=== PATIENT | female | born 1960 | race Caucasian/White ===

== ENCOUNTER 2019-04-11 19:08 | Inpatient (IN) | payer BC ==
[~2019-04-11] VITALS: Ht 165.1 cm; Wt 60.8 kg
--- NOTE | 2019-04-11 19:28 | NUR ---
SENT FROM URGENT CARE FOR PNEUMONIA. PT C/O BODY ACHES, CHILLS, FEVER, AND COUGH. +FEVER. DENIES SOB, DIZZINESS, WEAKNESS, N/V. APPEARS LETHARGIC. AOX4, RR EVEN AND UNLABORED ON RA. NO ACUTE DISTRESS NOTED. FAMILY AT BEDSIDE. ON MONITOR AND READY FOR EVAL.
[2019-04-11] MEDS ORDERED: AZITHROMYCIN 500 MG in IV D5W 250 ML IV ONE ×2 (19:30→20:00)
[2019-04-11] MEDS ORDERED: CEFTRIAXONE 1GM BAG (ER ONLY) 50 ML IV ONE (19:36)
--- NOTE | 2019-04-11 19:40 | NUR ---
IV LINE ESTABLISHED. IVF INFUSING. PT MARIE WELL
--- NOTE | 2019-04-11 19:45 | NUR ---
PT MOVED TO BED 8
[2019-04-11 19:48] LABS: BASOPHILS % (AUTO) 0.2 % (0.0-2.0); EOSINOPHILS % (AUTO) 1.1 % (0.0-6.0); HEMATOCRIT 35 % (33-45); HEMOGLOBIN 11.9 g/dL (11.5-14.8); LYMPHOCYTES # (AUTO) 0.7 /CMM (0.8-4.8); LYMPHOCYTES % (AUTO) 4.8 % (20.0-44.0); MEAN CORPUSCULAR HGB CONC 34 g/dl (31.0-36.0); MEAN CORPUSCULAR VOLUME 95 fL (82-100); MONOCYTES # (AUTO) 0.9 /CMM (0.1-1.30); MONOCYTES % (AUTO) 5.8 % (2.0-12.0); NEUTROPHILS # (AUTO) 13.3 /CMM (1.8-8.9); NEUTROPHILS % (AUTO) 88.1 % (43.0-81.0); PLATELET COUNT (AUTO) 230 /CMM (150-450); RED BLOOD CELL COUNT(AUTO) 3.69 MIL/uL (4.0-5.2); WHITE BLOOD COUNT (AUTO) 15.1 K/uL (4.3-11.0)
[2019-04-11] MEDS: IV NS 0.9% 500 ML BAG IV ONE ×2 (19:54→19:56)
[2019-04-11] MEDS: CEFTRIAXONE 1GM BAG (ER ONLY) 50 ML IV ONE ×2 (19:55→19:57)
[2019-04-11] MEDS ORDERED: IBUPROFEN 600 MG TABLET PO ONE ×2 (20:00→20:29)
[2019-04-11] MEDS ORDERED: ALBUTEROL FS 2.5 MG/3 ML VIAL.NEB NEB ONE (20:00)
[2019-04-11] MEDS ORDERED: IV NS 0.9% 1,000 ML BAG IV ONE (20:00)
[2019-04-11] MEDS ORDERED: IPRATROPIUM NEB FS 0.5 MG/2.5 ML AMPUL.NEB NEB ONE (20:00)
[2019-04-11 20:01] LABS: CALCIUM, SERUM 9.2 mg/dL (8.5-10.1); CARBON DIOXIDE 21 mmol/L (21-32); CHLORIDE 89 mmol/L (98-107); GLUCOSE 91 mg/dL (74-106); POTASSIUM 3.2 mmol/L (3.5-5.1); SODIUM SERUM 126 mmol/L (136-145); UREA NITROGEN, BLOOD 37 mg/dL (7-18)
[2019-04-11 20:07] LABS: ALANINE AMINOTRANSFERASE 58 U/L (12-78); ALBUMIN 2.8 g/dL (3.4-5.0); ALKALINE PHOSPHATASE 55 U/L (46-116); ASPARTATE AMINOTRANSFERASE 118 U/L (15-37); BILIRUBIN,DIRECT 0.2 mg/dL (0.0-0.2); BILIRUBIN,TOTAL 0.4 mg/dL (0.2-1.0); LIPASE 57 U/L (73-393); TOTAL PROTEIN, SERUM 7.2 g/dL (6.4-8.2)
[2019-04-11] MEDS ORDERED: ALBUTEROL FS 2.5 MG/3 ML VIAL.NEB ONE (20:31)
[2019-04-11] MEDS ORDERED: IPRATROPIUM NEB FS 0.5 MG/2.5 ML AMPUL.NEB ONE (20:31)
--- NOTE | 2019-04-11 20:31 | NUR ---
FLU SWAB AND MRSA SWAB DONE AND SENT TO LAB
--- NOTE | 2019-04-11 20:52 | NUR ---
Epic paged for panel call
--- NOTE | 2019-04-11 20:59 | NUR ---
FLU SWAB SENT TO STAT LAB
[2019-04-11] MEDS ORDERED: IV NS 0.9% 1,000 ML IV PRN (21:07)
[2019-04-11] MEDS ORDERED: ZOLPIDEM TARTRATE 5 MG TABLET PO PRN (21:30)
[2019-04-11] MEDS ORDERED: ALBUTEROL HALF STRENGTH 1.25 MG/3 ML VIAL.NEB NEB PRN (21:30)
[2019-04-11] MEDS ORDERED: MAG HYDROX/AL HYDROX/SIMETH 30 ML UDC PO PRN (21:30)
[2019-04-11] MEDS ORDERED: MAGNESIUM HYDROXIDE 30 ML UDC PO PRN (21:30)
[2019-04-11] MEDS ORDERED: IPRATROPIUM NEB FS 0.5 MG/2.5 ML AMPUL.NEB NEB PRN (21:30)
[2019-04-11] MEDS ORDERED: HYDROCODONE/APAP 5/325MG 1 EACH TABLET PO PRN (21:30)
[2019-04-11] MEDS ORDERED: MORPHINE SULFATE INJ 2 MG/ML DISP.SYRIN IV PRN (21:30)
[2019-04-11] MEDS ORDERED: ONDANSETRON HCL/PF 4 MG/2 ML VIAL IVP PRN (21:30)
[2019-04-11] MEDS ORDERED: IBUPROFEN 600 MG TABLET PO PRN (21:30)
--- NOTE | 2019-04-11 21:37 | NUR ---
REPORT GIVEN TO NOMI YOUNG FOR 317-1 TELE.
--- NOTE | 2019-04-11 21:58 | NUR ---
PT TRANSFERED PER ACLS PROTOCOL
[2019-04-11] MEDS: ACETAMINOPHEN 325 MG TABLET PO PRN (22:40)
[2019-04-11] MEDS: NICOTINE PATCH (14MG) 14 MG PATCH.TD24 TD SCH (22:40)
[2019-04-11 22:54] VITALS: BP 127/77
[2019-04-11] MEDS ORDERED: LISI10TA5 PO (23:10)
[2019-04-11] MEDS ORDERED: TRAZ-257 PO (23:10)
[2019-04-12] VITALS: BP 125/70
[2019-04-12 04:00] VITALS: BP 120/70
--- NOTE | 2019-04-12 06:10 | NUR ---
MS RN NOTES AWAKE & RESPONSIVE. NOT IN ANY DISTRESS. NO SOB NOTED. DENIES ANY PAIN OR DISCOMFORT AT THIS TIME. WITH IVF INFUSING WELL. MONITORED ACCORDINGLY. CALL LIGHT WITHIN REACH. BED IN LOWEST POSITION. SR UP X 2 FOR SAFETY. WILL ENDORSE TO NEXT SHIFT.
[2019-04-12 07:50] LABS: BASOPHILS % (AUTO) 0.1 % (0.0-2.0); EOSINOPHILS % (AUTO) 1.6 % (0.0-6.0); HEMATOCRIT 33 % (33-45); HEMOGLOBIN 11.1 g/dL (11.5-14.8); LYMPHOCYTES # (AUTO) 0.8 /CMM (0.8-4.8); LYMPHOCYTES % (AUTO) 5.3 % (20.0-44.0); MEAN CORPUSCULAR HGB CONC 33 g/dl (31.0-36.0); MEAN CORPUSCULAR VOLUME 96 fL (82-100); MONOCYTES # (AUTO) 1.2 /CMM (0.1-1.30); MONOCYTES % (AUTO) 8.1 % (2.0-12.0); NEUTROPHILS # (AUTO) 12.9 /CMM (1.8-8.9); NEUTROPHILS % (AUTO) 84.9 % (43.0-81.0); PLATELET COUNT (AUTO) 189 /CMM (150-450); RED BLOOD CELL COUNT(AUTO) 3.44 MIL/uL (4.0-5.2); WHITE BLOOD COUNT (AUTO) 15.2 K/uL (4.3-11.0)
[2019-04-12 08:00] VITALS: BP 148/85
[2019-04-12 08:19] LABS: ALBUMIN 2.1 g/dL (3.4-5.0); BILIRUBIN,TOTAL 0.3 mg/dL (0.2-1.0); CALCIUM, SERUM 8.5 mg/dL (8.5-10.1); CREATININE 1.8 mg/dL (0.6-1.3); MAGNESIUM 2.1 mg/dL (1.8-2.4); PHOSPHORUS 3.7 mg/dL (2.5-4.9); POTASSIUM 3.1 mmol/L (3.5-5.1)
[2019-04-12 08:24] LABS: THYROID STIMULATING HORMONE 0.818 uIU/mL (0.358-3.74)
[2019-04-12 08:25] VITALS: BP 148/85
[2019-04-12] MEDS: ACETAMINOPHEN 325 MG TABLET PO PRN ×2 (08:45→17:56)
[2019-04-12] MEDS: PANTOPRAZOLE 40 MG TABLET.DR PO SCH (08:45)
[2019-04-12] MEDS: NICOTINE PATCH (14MG) 14 MG PATCH.TD24 TD SCH (08:45)
[2019-04-12] MEDS: IV D5/ 0.9% NACL 1,000 ML IV PRN ×2 (10:45→20:50)
[2019-04-12] MEDS: POTASSIUM CHLORIDE 20 MEQ TAB.PRT.SR PO SCH ×2 (10:47→12:14)
[2019-04-12 13:10] LABS: CREATININE, URINE 18.1 MG/DL (30.0-125.0); URINE TOTAL PROTEIN 35.2 mg/dL (0-11.9)
[2019-04-12 13:44] LABS: APPEARANCE,URINE CLEAR (CLEAR); BILIRUBIN,URINE NEGATIVE (NEGATIVE); BLOOD, URINE MODERATE Ery/uL (NEGATIVE); KETONES,URINE NEGATIVE (NEGATIVE); LEUKOCYTE ESTERASE ,URINE NEGATIVE (NEGATIVE); NITRITE, URINE NEGATIVE (NEGATIVE); PROTEIN,URINE NEGATIVE (NEGATIVE); UGLUCOSE NEGATIVE (NEGATIVE); UROBILINOGEN,URINE 0.2 EU/dL (0.2)
[2019-04-12 13:50] LABS: COLOR,URINE STRAW (YELLOW)
--- NOTE | 2019-04-12 14:58 | NUR ---
Per doctor Redmond : Pt's home meds to be continue
[2019-04-12 15:25] LABS: EOSINOPHIL,URINE None Seen
[2019-04-12 15:26] LABS: BACTERIA,URINE 2+ /HPF (None Seen); SQUAMOUS EPITHELIAL CELL,UR Few /HPF (None Seen); WBC,URINE NONE SEEN /HPF (0-3)
[2019-04-12 16:00] VITALS: BP 143/85
[2019-04-12] MEDS: LISINOPRIL (10MG) 10 MG TABLET PO SCH (17:56)
--- NOTE | 2019-04-12 19:17 | NUR ---
PATIENT AWAKE A/O X4. NOT IN ANY DISTRESS. TYLENOL FOR LOW GRADE FEVER ADMINISTRATED. IVF INFUSING WELL. MONITORED ACCORDINGLY. CALL LIGHT WITHIN REACH, AT BED SIDE. BED IN LOWEST POSITION. SIDE RAILS UP X 2 FOR SAFETY. WILL ENDORSE TO NEXT SHIFT.
--- NOTE | 2019-04-12 19:20 | NUR ---
RN NOTES: RECEIVED AWAKE IN BED, ON ISOLATION, DROPLET AND TB/NEGATIVE PRESSURE ISOLATION, PPRESENT AT BED SIDE, PPE PROTOCOL FOLLOWED,A/0X 4, VERY PLEASANT PERSONALITY, WHILE ENDORSING SHE WAS REQUESTING FOR HHN, OUTGOING RN ALREADY NOTIFIED RT.FALL,SAFETY AND ASPIRATION PRECAUTION OBSERVED, NOT ON RESPIRATORY DISTRESS, SLIGHT SOB NOTED WANTS HER HHN, TO COLLECT SPUTUM FOR [employer].KEPT ON CLOSE WATCH.
[2019-04-12 20:00] VITALS: BP 118/69
--- NOTE | 2019-04-12 20:20 | NUR ---
RN NOTES: -AFTER ENDORSEMENT CALLED RT AND F/U FOR HHN. -RT CAME AND HHN RENDERED. FOR SPUTUM SPECIMEN COLLECTION AFTER NEBULIZATION, PATIENT WAS INSTRUCTED. SPECIMEN BOTTLE AVAILABLE AT BED SIDE.
--- NOTE | 2019-04-12 20:30 | NUR ---
RN NOTES: -AFTER NEBULIZATION SHE AGREE TO GIVE IV/ATB. -SHE WAS SEEN BY JUDEEN/SUPERVISOR [employer]ACING AT AROUND 2029, THEN SHE CALLED TO DO RESPIRATORY VIRUS PANEL. NOTED AND CARRIED OUT. -F/U WITH LAB AND SPOKE WITH STEVIE, NEED TO COLLECT SPECIMEN IN GREEN BOTTLE, NASAL SWAB ON BOTH RIGHT AND LEFT NARES. -2107-SPECIMEN BOTTLE DELIVERED , EXPLAINED TO PATIENT, SPECIMEN COLLECTED; READY FOR PICK-UP. COLLECTED BY LAB AT AROUND 2114.
[2019-04-12] MEDS: CEFTRIAXONE 1 G in IV D5W 50 ML IV SCH (20:34)
[2019-04-12] MEDS: AZITHROMYCIN 500 MG in IV D5W 250 ML IV SCH (20:38)
[2019-04-12] MEDS: TRAZODONE 50 MG TABLET PO SCH (21:32)
--- NOTE | 2019-04-12 22:00 | NUR ---
RN NOTES: IVF FINISHED, NEW BAG OF D5NS AT 75 ML/HR STARTED, IV SITE RAC PATENT, CONTINUE INFUSION USING IV PUMP.
--- NOTE | 2019-04-13 03:30 | NUR ---
RN NOTES: WHILE DOING MORNING CARE, CHANGING HER BEADINGS AND DRESS, MORNING CARE DONE, SHE CLAIMED SHE VOMITED 2X ALL SALIVA ONLY COMING OUT AND SHE FELT NAUSEATED, REQUESTING IF SHE GOOD GET SOME MEDICATION, SHE FEELS COLD, WARM BLANKET PROVIDED, SHE IS AFEBRILE, ZOFRAN PRN GIVEN. KEPT ON CLOSE WATCH.CALL LIGHT WITHIN EASY REACH.
--- NOTE | 2019-04-13 06:43 | NUR ---
RN NOTES: ABLE TO SLEEP AND REST, NO MORE VOMITING IN THE MORNING, SHE WAS NOT ABLE TO COLLECT SPUTUM SPECIMEN SHE VERBALIZED NO PHLEGM COMING OUT AND I FEEL THIRSTY MOST OF THE TIME, WATER PITCHER AT BED SIDE,FALL,SAFETY AND ASPIRATION OBSERVED, CONTINUE TO KEEP ON CLOSE WATCH, NEEDS ATTENDED, SHE GO BACK TO SLEEP.
[2019-04-13] MEDS: PANTOPRAZOLE 40 MG TABLET.DR PO SCH (07:30)
[2019-04-13 07:50] LABS: BASOPHILS % (AUTO) 0.2 % (0.0-2.0); HEMATOCRIT 32 % (33-45); HEMOGLOBIN 10.8 g/dL (11.5-14.8); LYMPHOCYTES # (AUTO) 1.1 /CMM (0.8-4.8); LYMPHOCYTES % (AUTO) 8.7 % (20.0-44.0); MEAN CORPUSCULAR HGB CONC 34 g/dl (31.0-36.0); MEAN CORPUSCULAR VOLUME 95 fL (82-100); MONOCYTES # (AUTO) 1.2 /CMM (0.1-1.30); NEUTROPHILS # (AUTO) 9.8 /CMM (1.8-8.9); NEUTROPHILS % (AUTO) 81.1 % (43.0-81.0); PLATELET COUNT (AUTO) 232 /CMM (150-450); RED BLOOD CELL COUNT(AUTO) 3.35 MIL/uL (4.0-5.2); WHITE BLOOD COUNT (AUTO) 12.1 K/uL (4.3-11.0)
[2019-04-13 08:00] VITALS: BP 133/72
[2019-04-13 08:04] LABS: ALBUMIN 2.1 g/dL (3.4-5.0); BILIRUBIN,TOTAL 0.4 mg/dL (0.2-1.0); CALCIUM, SERUM 8.7 mg/dL (8.5-10.1); CREATININE 1.2 mg/dL (0.6-1.3); MAGNESIUM 1.8 mg/dL (1.8-2.4); PHOSPHORUS 1.7 mg/dL (2.5-4.9); POTASSIUM 2.9 mmol/L (3.5-5.1); TOTAL PROTEIN, SERUM 6.4 g/dL (6.4-8.2)
[2019-04-13] MEDS: NICOTINE PATCH (14MG) 14 MG PATCH.TD24 TD SCH (09:00)
[2019-04-13] MEDS: LISINOPRIL (10MG) 10 MG TABLET PO SCH (09:41)
[2019-04-13 10:13] LABS: BAND % (MANUAL) 3 % (0.0-5.0); LYMPHOCYTES % (MANUAL) 6 % (16-48); MONOCYTES % (MANUAL) 6 % (0-11.0); NEUTROPHILS % (MANUAL) 85 (42-76)
[2019-04-13] MEDS: POTASSIUM CHLORIDE 20 MEQ TAB.PRT.SR PO SCH ×3 (10:52→13:17)
[2019-04-13] MEDS: K PHOS NEUTRAL 250 MG TABLET PO SCH ×3 (13:23→21:08)
[2019-04-13 16:00] VITALS: BP 144/88
[2019-04-13] MEDS: ACETAMINOPHEN 325 MG TABLET PO PRN (16:19)
--- NOTE | 2019-04-13 18:36 | NUR ---
PATIENT AWAKE A/O X4. NOT IN ANY DISTRESS. TYLENOL FOR LOW GRADE FEVER ADMINISTRATED. IVF DISCONTINUED.REMAINS ON 2L VIA NASAL CANULA. CALL LIGHT WITHIN REACH, AT BED SIDE. BED IN LOWEST POSITION. SIDE RAILS UP X 2 FOR SAFETY. WILL ENDORSE TO NEXT SHIFT.
--- NOTE | 2019-04-13 19:54 | NUR ---
MS RN PATIENT IN BED AWAKE, A/O X 4, STABLE AND NOT IN DISTRESS. MAINTAINS ISOLATION. SAFETY MEASURES IN PLACE. WILL CONTINUE TO MONITOR.
[2019-04-13 20:00] VITALS: BP 123/70
[2019-04-13] MEDS: CEFTRIAXONE 1 G in IV D5W 50 ML IV SCH (20:26)
[2019-04-13 20:35] VITALS: BP 123/70
[2019-04-13] MEDS: AZITHROMYCIN 500 MG in IV D5W 250 ML IV SCH (20:58)
[2019-04-13] MEDS: TRAZODONE 50 MG TABLET PO SCH (21:08)
--- NOTE | 2019-04-14 06:42 | NUR ---
MS RN NO SIGNIFICANT CHANGES, SLEPT WELL, MAINTAINS ISOLATION. NEEDS ATTENDED AND ANTICIPATED, KEPT CLEAN, DRY AND COMFORTABLE AT ALL TIMES. SAFETY MEASURES AT ALL TIMES. WILL ENDORSE NEXT SHIFT POC.
--- NOTE | 2019-04-14 07:30 | NUR ---
RN MS NOTES PT IN BED, AWAKE, ALERT AND ORIENTED, NO COMPLAINT OF PAIN, NOT IN DISTRESS, NO COUGHING NOTED, CALL LIGHT WITHIN REACH, KEPT WARM AND COMFORTABLE IN BED, ISOLATION PRECAUTIONS OBSERVED.
[2019-04-14 08:00] VITALS: BP 136/85
[2019-04-14] MEDS ORDERED: POTASSIUM CHLORIDE 20 MEQ TAB.PRT.SR PO ONE (08:30)
[2019-04-14] MEDS: PANTOPRAZOLE 40 MG TABLET.DR PO SCH (08:37)
[2019-04-14] MEDS: LISINOPRIL (10MG) 10 MG TABLET PO SCH (08:38)
[2019-04-14] MEDS: NICOTINE PATCH (14MG) 14 MG PATCH.TD24 TD SCH (08:42)
[2019-04-14 09:06] LABS: CALCIUM, SERUM 8.6 mg/dL (8.5-10.1); CREATININE 0.9 mg/dL (0.6-1.3); POTASSIUM 3.2 mmol/L (3.5-5.1)
[2019-04-14] MEDS: ACETAMINOPHEN 325 MG TABLET PO PRN (11:50)
--- NOTE | 2019-04-14 13:00 | NUR ---
RN MS NOTES PT IN BED, AWAKE, ALERT AND ORIENTED, NO COMPLAINT AT THIS TIME, RESPIRATIONS NORMAL, DENIES PAIN, SEEN BY DR. MG, PLAN OF CARE DISCUSSED WITH PT, VERBALIZED UNDERSTANDING, ISOLATION PRECAUTIONS OBSERVED, NEEDS ATTENDED.
[2019-04-14 16:00] VITALS: BP 113/59
[2019-04-14] MEDS: CEFTRIAXONE 1 G in IV D5W 50 ML IV SCH (18:11)
--- NOTE | 2019-04-14 18:51 | NUR ---
RN MS NOTES PT IN BED, AWAKE, ALERT AND ORIENTED, NO COMPLAINT OF PAIN, BREATHING PATTERN NORMAL, CALL LIGHT WITHIN REACH, PM MEDS GIVEN ORDERED, PM CARE PROVIDED, ISOLATION PRECAUTIONS OBSERVED. ALL NEEDS ATTENDED.
--- NOTE | 2019-04-14 19:52 | NUR ---
MS/RN OPENING NOTES' RECEIVED PATIENT IN BED,ON ISOLATION FOR AIRBORNE. TO RULE OUT TB,ALERT, ORIENTED, ABLE TO VERBALIZE NEEDS, FAMILY INVOLVE.RECEIVED ENDORSEMENT FROM AM RN FOR TYE. WILL MONITOR. DENIES PAIN. BED LOCKED, BELONGINGS WITHIN REACH. WILL CONTINUE WITH CARE,RIGHT WRIST GAUGE 22 PATENT.
[2019-04-14 20:00] VITALS: BP 116/77
[2019-04-14] MEDS ORDERED: AZITHROMYCIN 250 MG TABLET PO SCH (20:00)
--- NOTE | 2019-04-14 20:30 | NUR ---
MS/RN NOTES PATIENT REPORTED ALLERGIC REACTION ON MEDICATION GIVEN EARLIER TODAY WIWTH OBSERVED RASHES IN THE BACK, MD WAS MADE AWARE WITH ORDER FOR BENADRYL IVP, AND TO CONSULT WITH ID, TO ORDER WOUND CONSULT AND TAKE PICTURE OF RASHES. WILL MONITOR.
[2019-04-14] MEDS: diphenhydrAMINE HCL 50 MG/ML VIAL IV PRN (20:56)
[2019-04-14] MEDS: TRAZODONE 50 MG TABLET PO SCH (22:04)
--- NOTE | 2019-04-14 22:45 | NUR ---
MS/RN NOTES PHOTO OF THE BACK WITH RASHES TAKEN.
--- NOTE | 2019-04-15 07:15 | NUR ---
MS RN OPENING NOTES RECEIVED PATIENT IN BED ASLEEP, AROUSABLE TO VERBAL AND TACTILE STIMULI. NO SOB. DENIES ANY C/O PAIN NOR DISCOMFORT AT THIS TIME. HOB ELEVATED. AMBULATORY WITH STEADY GAIT. RIGHT WRIST SL #22 INTACT AND PATENT. BED IN LOWEST POSITION, LOCKED. BED SIDERAILS UP X2. CALL LIGHT WITHIN REACH.
--- NOTE | 2019-04-15 07:30 | NUR ---
317-1 MS/RN CLOSING NOTED PATIENT ALERT, ORIENTED, X4, ABLE TO VERBALIZE NEEDS, FOLLOWED AIRBORME PROTOCOL, ATTENDED TO ALL NEEDS, KEPT COMFORTABLE, ABLE TO DO SELF CARE. MONITORED FOR ANY CHANGES BED LOCED, CALL LIGHTS WITHIN REACH. WILL ENDORSE TO AM RN FOR TYE.
[2019-04-15 07:55] VITALS: BP 128/71
[2019-04-15 08:06] LABS: CREATININE KINASE (CK),MB < 1.0 ng/mL (0.0-5.3)
[2019-04-15 08:17] LABS: BASOPHILS % (AUTO) 0.5 % (0.0-2.0); EOSINOPHILS % (AUTO) 1.3 % (0.0-6.0); HEMATOCRIT 30 % (33-45); HEMOGLOBIN 10.1 g/dL (11.5-14.8); LYMPHOCYTES # (AUTO) 1.8 /CMM (0.8-4.8); LYMPHOCYTES % (AUTO) 20.3 % (20.0-44.0); MEAN CORPUSCULAR HGB CONC 34 g/dl (31.0-36.0); MEAN CORPUSCULAR VOLUME 95 fL (82-100); MONOCYTES # (AUTO) 0.9 /CMM (0.1-1.30); MONOCYTES % (AUTO) 10.5 % (2.0-12.0); NEUTROPHILS % (AUTO) 67.4 % (43.0-81.0); PLATELET COUNT (AUTO) 338 /CMM (150-450); WHITE BLOOD COUNT (AUTO) 8.9 K/uL (4.3-11.0)
[2019-04-15] MEDS: PANTOPRAZOLE 40 MG TABLET.DR PO SCH (08:23)
[2019-04-15 08:24] VITALS: BP 128/71
[2019-04-15] MEDS: LISINOPRIL (10MG) 10 MG TABLET PO SCH (08:24)
[2019-04-15] MEDS: NICOTINE PATCH (14MG) 14 MG PATCH.TD24 TD SCH ×2 (08:24→08:31)
[2019-04-15] MEDS ORDERED: LEVO750T46 PO (08:32)
[2019-04-15] MEDS ORDERED: AZIT250T13 PO (08:32)
[2019-04-15 08:43] LABS: BILIRUBIN,TOTAL 0.6 mg/dL (0.2-1.0); CALCIUM, SERUM 8.8 mg/dL (8.5-10.1); CREATININE 0.8 mg/dL (0.6-1.3); MAGNESIUM 1.5 mg/dL (1.8-2.4); PHOSPHORUS 2.8 mg/dL (2.5-4.9); POTASSIUM 3.8 mmol/L (3.5-5.1); TOTAL PROTEIN, SERUM 6.2 g/dL (6.4-8.2)
[2019-04-15 09:13] LABS: BAND % (MANUAL) 2 % (0.0-5.0); EOSINOPHILS % (MANUAL) 1 % (0-4); LYMPHOCYTES % (MANUAL) 16 % (16-48); MONOCYTES % (MANUAL) 9 % (0-11.0); NEUTROPHILS % (MANUAL) 72 (42-76)
[2019-04-15] MEDS ORDERED: MAGNESIUM OXIDE 400 MG TABLET PO ONE (09:30)
[2019-04-15] MEDS: diphenhydrAMINE HCL 50 MG/ML VIAL IV PRN (09:54)
[2019-04-15 10:17] LABS: PTH, INTACT 22 pg/mL (15-65)
--- NOTE | 2019-04-15 12:00 | NUR ---
MS RN CLOSING NOTES ALERT AND ORIENTED X4. NO S/S OF RESPIRATORY DISTRESS. DENIES ANY C/O PAIN NOR DISCOMFORT AT THIS TIME. AT BEDSIDE. DISCHARGE INTRODUCTIONS, EDUCATION AND PACKET GIVEN TO PATIENT. IV ACCESS REMOVED WITH CATHETER TIP INTACT. ALL BELONGINGS ACCOUNTED FOR. AMBULATORY WITH STEADY GAIT. PATIENT LEFT WITH IN STABLE CONDITION.
[2019-04-15 19:06] LABS: *MYCOPLASMA PNEUMONIAE IgM <770 U/mL (0-769)
[2019-04-15 22:33] LABS: *MYCOPLASMA PNEUMONIAE IgG 248 U/mL (0-99)
[2019-04-17 10:09] LABS: *SPE A/G RATIO 0.7 (0.7-1.7); *SPE ALBUMIN 2.1 g/dL (2.9-4.4); *SPE ALPHA-1-GLOBULIN 0.5 g/dL (0.0-0.4); *SPE ALPHA-2-GLOBULIN 1.2 g/dL (0.4-1.0); *SPE BETA GLOBULIN 0.8 g/dL (0.7-1.3); *SPE GLOBULIN, TOTAL 3.1 g/dL (2.2-3.9); *SPE M-SPIKE Not Observed g/dL (Not Observed); *SPEGAMMA GLOBULIN 0.6 g/dL (0.4-1.8)
== END 2019-04-15 13:00 | disposition home or self-care (01) | DRG 871 ==
LOC: ER 19:08 → TELE 20:11 → MED 04-12 08:51
PROVIDERS: ADMIT Nurse Practitioner Acute Care; ATTEND Internal Medicine
DX: A41.9 Sepsis, unspecified organism (principal); J15.9 Unspecified bacterial pneumonia; N17.0 Acute kidney failure with tubular necrosis; J96.01 Acute respiratory failure with hypoxia; E44.0 Moderate protein-calorie malnutrition; E87.1 Hypo-osmolality and hyponatremia; E86.0 Dehydration; E87.6 Hypokalemia; R53.1 Weakness; R94.5 Abnormal results of liver function studies; E88.09 Other disorders of plasma-protein metabolism, not elsewhere classified; Z68.22 Body mass index [BMI] 22.0-22.9, adult; I10 Essential (primary) hypertension; F17.210 Nicotine dependence, cigarettes, uncomplicated; R65.20 Severe sepsis without septic shock; Z88.0 Allergy status to penicillin
CPT/HCPCS: 36415; 71045-TC; 80048-TC; 80053-TC; 80061-TC; 80076-TC; 81000-TC; 82550-TC; 82570-TC; 83605-TC; 83690-TC; 83735-TC; 83970; 84100-TC; 84155; 84155-TC; 84165; 84300-TC; 84443-TC; 84484-TC; 85025-TC; 85730-TC; 86480; 86713; 86738; 86803; 87040-TC; 87070-TC; 87081-TC; 87086-TC; 87449; G0378; J0456; J0696; J1200; J2405; J7030; J7040; J7042; J7060

== ENCOUNTER 2024-12-20 00:06 | Emergency (ER) | payer BC, OTHER ==
[~2024-12-20] VITALS: Ht 172.7 cm; Wt 72.1 kg
[~2024-12-20 00:06] MED LIST: AZIT250T13 PO; LEVO750T46 PO; LISI10TA29 PO
[2024-12-20 00:40] LABS: PLATELET COUNT (AUTO) 250 K/uL (150-450); RED BLOOD CELL COUNT(AUTO) 4.04 MIL/uL (4.0-5.2); RED CELL DISTRIBUTION WIDTH 14.1 % (11.5-15.0); WHITE BLOOD COUNT (AUTO) 8.3 K/uL (4.3-11.0)
[2024-12-20] MEDS ORDERED: ASPIRIN 325 MG TABLET ONE (00:41)
[2024-12-20] MEDS ORDERED: NITROGLYCERIN 0.4 MG/TAB BOTTLE ONE (00:41)
[2024-12-20] MEDS: ASPIRIN 325 MG TABLET PO ONE (00:43)
[2024-12-20] MEDS: NITROGLYCERIN 0.4 MG/TAB BOTTLE SL ONE (00:43)
[2024-12-20 00:50] LABS: CALCIUM, SERUM 8.6 mg/dL (8.5-10.1); CREATININE 0.8 mg/dL (0.6-1.3); SODIUM SERUM 138 mmol/L (136-145); UREA NITROGEN, BLOOD 15 mg/dL (7-18)
[2024-12-20] MEDS ORDERED: ACETAMINOPHEN 325 MG TABLET ONE (01:02)
[2024-12-20 01:03] LABS: INR 0.96 (0.91-1.10)
[2024-12-20] MEDS: ACETAMINOPHEN 325 MG TABLET PO ONE (01:04)
[2024-12-20] MEDS ORDERED: KETOROLAC TROMETHAMINE INJ 30 MG/ML VIAL ONE (01:29)
[2024-12-20] MEDS: KETOROLAC TROMETHAMINE INJ 30 MG/ML VIAL IV ONE (01:31)
[2024-12-20 01:57] VITALS: BP 154/97; TEMP 98.4; O2SAT 98
== END 2024-12-20 01:57 | disposition home or self-care (01) ==
LOC: ER 00:07
DX: R07.2 Precordial pain (principal); I11.9 Hypertensive heart disease without heart failure; F17.200 Nicotine dependence, unspecified, uncomplicated; Z79.899 Other long term (current) drug therapy; Z88.0 Allergy status to penicillin; Z60.2 Problems related to living alone
CPT/HCPCS: 99285; 96374; 71045; 93005; 85025; 80048; 36415; 84484; 85730; J1885